=== PATIENT | female | born 1995 | race Caucasian/White ===

== ENCOUNTER 2017-12-29 03:02 | Day surgery (SDC) | payer OTHER ==
[~2017-12-29] VITALS: Ht 167.6 cm; Wt 134.3 kg
[2017-12-29] VITALS (9 sets, daily range): BP systolic 104–124; BP diastolic 50–75
[~2017-12-29 03:02] MED LIST: CELE-1 PO; CELECOXIB 200 MG CAP PO ONE; CEPH-13 PO; FOLI-68 PO; HYDR-385 PO; HYDR200T77 PO; METH2.5T43 PO; PRED-1 PO
[2017-12-29] MEDS ORDERED: BUPIV/EPI 0.25% 1:200,000 50ML INFIL ONE (07:22)
[2017-12-29] MEDS ORDERED: ROPIVACAINE 0.2% 20 ML VIAL ONE (07:22)
[2017-12-29] MEDS ORDERED: fentaNYL CITR 250 MCG/5 ML AMP ONE (07:58)
[2017-12-29] MEDS ORDERED: PROPOFOL EMUL(*) 10MG/ML 20 ML 20 ML ONE (07:59)
[2017-12-29] MEDS ORDERED: LIDOCAINE 2% IV 100 MG/5ML SYR ONE (07:59)
[2017-12-29] MEDS ORDERED: CELECOXIB 200 MG CAP PO ONE (08:35)
[2017-12-29] MEDS ORDERED: NEOMYCIN/POLYMYX/BACITR 30 GM TP ONE (08:52)
[2017-12-29] MEDS ORDERED: FAMOTIDINE 20 MG TAB PO ONE (09:20)
[2017-12-29] MEDS ORDERED: MIDAZOLAM 2 MG/2 ML VIAL IVP PRN (09:20)
[2017-12-29] MEDS ORDERED: LIDOCAINE/SOD BICARB 8.4% SYR ID ONE (09:20)
[2017-12-29] MEDS ORDERED: ceFAZolin(*) 2GM/D5W 50ML 50 ML IVPB ONE (09:20)
[2017-12-29] MEDS ORDERED: NORMOSOL R SOLN(*) 1000 ML BAG 1,000 ML IV PRN (09:20)
[2017-12-29] MEDS ORDERED: DEXAMETHASONE SOD 4 MG/ML VIAL ONE (09:55)
[2017-12-29] MEDS ORDERED: ONDANSETRON 4 MG/2 ML VIAL ONE (10:12)
[2017-12-29] MEDS ORDERED: KETOROLAC 30 MG/ML VIAL ONE (10:13)
[2017-12-29] MEDS ORDERED: fentaNYL CITR 100 MCG/2 ML AMP ONE ×2 (10:50→11:11)
[2017-12-29] MEDS ORDERED: LACTATED RINGER 3000 ML BAG IR ONE (11:06)
[2017-12-29] MEDS ORDERED: HYDR-653 PO (11:26)
[2017-12-29] MEDS ORDERED: CEPH500C24 PO (11:26)
[2017-12-29] MEDS ORDERED: NORMOSOL R SOLN(*) 1000 ML BAG 1,000 ML IV ONE (11:59)
[2017-12-29] MEDS ORDERED: APAP/HYDROCODONE 325/5 TAB PO PRN (14:30)
--- NOTE | 2017-12-29 15:47 | OPERATIVE REPORT 1 ---
EVENT DATE: December 29, 2017 SURGEON: Shaun Cole MD ANESTHESIOLOGIST: Aníbal Choe MD ANESTHESIA: General. STATION WORKER: YARIEL Kee PREOPERATIVE DIAGNOSES Right knee rheumatoid arthritis with synovitis and lateral patellar subluxation as well as moderate chondral damage. POSTOPERATIVE DIAGNOSES Right knee rheumatoid arthritis with synovitis and lateral patellar subluxation as well as moderate chondral damage. PROCEDURES PERFORMED Right knee arthroscopy with extensive rheumatoid synovectomy (23441) with chondroplasty of the lateral femoral condyle and the lateral patellar facet (55460), associated with lateral release (99276). ESTIMATED BLOOD LOSS Minimal. INTRAVENOUS FLUIDS 900 TOURNIQUET TIME 32 minutes at 300 mmHg. SPECIMENS Initial aspiration of the knee sent for crystal analysis, cellular count, culture, sensitivity, and Gram stain. SUMMARY OF PROCEDURE The patient was brought into the operating room and placed on the OR table in the supine position. After obtaining adequate general anesthesia with Dr. Choe, the right lower extremity was prepped and draped in the usual sterile fashion. Her size made this a little bit more challenging than average. Once the prep and drape were completed, we exsanguinated the limb and inflated the tourniquet to 300 mmHg. Standard arthroscopic assessment was undertaken beginning with a lateral visualization in the medial instrumentation portal. We had the expected synovitic tissue due to her rheumatoid arthritis, and we began in the suprapatellar region where we released a stricture and a did a full synovectomy in that region, following it out onto the medial side of the patellofemoral joint and then did a little bit of the lateral side. We checked both gutters, finding them to be clear on the medial side and obstructed on the lateral side with synovitic tissue. We then went into the medial compartment where we found no evidence of meniscus tear. There was a little bit of free edge fraying on the anteromedial meniscus. We then cleared the synovitic tissue from the notch, checked the ACL and PCL, both of which were in good condition, and then went over to the lateral compartment, using a [id number] position. Again, as per the MRI, the lateral compartment was intact. There was a bit of synovitic tissue hanging out into the joint from the anterior aspect which was removed. We then did a chondroplasty of the lateral femoral condyle as well as the lateral facet of the patella. We checked in slight flexion, finding the patella to be shifted well lateral as we expected with a fairly large hypertrophic contracture over the lateral retinaculum. The camera was switched to the medial side, and we began to debride the areas of the lateral gutter that we had identified previously as obstructed. The synovectomy tissue was fully removed from the gutter, and I freed up the retinaculum so we could clear it for a release. A needle was used at the superior margin of the patella to cornell it, and then we started just above this in the margins of the vastus lateralis and released the lateral retinaculum. We had much better seating of the patella and flexion after this. We did a final debridement of a bit of the crown of the medial femoral condyle in association with completion of the lateral femoral condyle and lateral patellar facet and then drained the knee. Arthroscopic portals were closed with nylon. She was given a dry, sterile dressing with a kidney sánchez shaped felt pad on the lateral side. She was then awakened and transferred to the recovery room in stable condition. We had injected the arthroscopic portals with local anesthetics before the surgery. IJEOMA
== END 2017-12-29 12:00 | disposition home or self-care (01) ==
LOC: OR 03:02
PROVIDERS: ATTEND Orthopaedic Surgery Hand Surgery
DX: M06.9 Rheumatoid arthritis, unspecified (principal); S83.91XA Sprain of unspecified site of right knee, initial encounter
CPT/HCPCS: 29873; 84703; 87071; 87073; 89050; 89060; J1100; J1885; J2001; J2250; J2405; J2704; J2795; J3010; J0690